=== PATIENT | female | born 1985 | race American Indian/Alaskan Native ===

== ENCOUNTER 2018-06-11 19:18 | Emergency (ER) | payer SELFPAY ==
[2018-06-11] MEDS ORDERED: CATAPRES PO ONE ×2 (20:04→20:28)
[2018-06-11 20:44] LABS: Basophils % (Auto) 0.6 % (0.0-1.8); Eosinophils # (Auto) 0.1 K/mm3 (0.0-0.4); Eosinophils % (Auto) 1.7 % (0.0-4.3); Hematocrit 31.8 % (30.3-42.9); Hemoglobin 10.6 gm/dl (10.1-14.3); Lymphocytes # (Auto) 1.8 K/mm3 (1.2-5.4); Mean Corpuscular HGB Conc 33 % (30-34); Mean Corpuscular Hemoglobin 30 pg (28-32); Mean Corpuscular Volume 90 fl (79-97); Monocytes # (Auto) 0.8 K/mm3 (0.0-0.8); Monocytes % (Auto) 10.5 % (0.0-7.3); Platelet Count 318 K/mm3 (140-440); Red Blood Count 3.55 M/mm3 (3.65-5.03); Red Cell Distribution Width 14.4 % (13.2-15.2)
[2018-06-11] MEDS ORDERED: TORADOL IM ONE (21:11)
[2018-06-11 21:13] LABS: Calcium 8.3 mg/dL (8.4-10.2)
[2018-06-11 21:27] LABS: Bilirubin,Urine NEG (Negative); Blood,Urine LG (Negative); Color,Urine Red (Yellow); Mucus,Urine FEW /HPF; Urobilinogen,Urine < 2.0 mg/dL (<2.0)
[2018-06-11 21:28] LABS: Protein,Urine >500 mg/dL (Negative)
[2018-06-11 21:30] LABS: RBC,Urine > 182.0 /HPF (0.0-6.0)
--- NOTE | 2018-06-11 22:35 | Ultrasound Report ---
FINAL REPORT EXAM: US TRANSVAGINAL HISTORY: heavy vag bleeding TECHNIQUE: Transvaginal grayscale and color-flow imaging of the pelvis was performed. Comparison: Transabdominal pelvic ultrasound also performed today. FINDINGS: The uterus measures 8.5 centimeters x 3.6 centimeters x 4.5 centimeters and is normal in appearance. Endometrial thickness measures 9.3 millimeters. Nabothian cysts are demonstrated within the cervix. The cervix is otherwise unremarkable. The right ovary measures 3.1 centimeters x 1.7 centimeters x 2.2 centimeters and contains an approximately 1.2 centimeter dominant follicle. The left ovary measures 2.4 centimeters x 1.3 centimeters x 2 centimeters and is unremarkable in appearance. No free fluid is demonstrated in the pelvis. IMPRESSION: 1. Ultrasound pelvis within normal limits.
--- NOTE | 2018-06-11 22:37 | Ultrasound Report ---
FINAL REPORT EXAM: US PELVIC COMPLETE HISTORY: heavy vag bleeding TECHNIQUE: Transabdominal grayscale imaging of the pelvis was performed. Comparison: Transvaginal study also performed today FINDINGS: The urinary bladder is moderately distended and unremarkable in appearance. The uterus measures 8.5 centimeters x 3.6 centimeters x 4.5 centimeters and is unremarkable in appearance. The ovaries are not visualized on the transabdominal study. No free fluid is demonstrated in the pelvis. IMPRESSION: 1. Unremarkable appearance of the uterus. 2. The ovaries are not visualized on the transabdominal study. Please see report of transvaginal study also performed today.
--- NOTE | 2018-06-12 00:56 | Emergency Department Report ---
ED Female HPI - General Chief complaint: Vaginal Bleeding Stated complaint: VAGINAL BLEEDING Time Seen by Provider: 06/11/18 20:35 Source: patient Mode of arrival: Ambulatory Limitations: No Limitations - History of Present Illness Initial comments: 32-year-old female with a past medical history of obesity, hypertension, and diabetes and previous cholecystectomy presents to Hospital with complaints of persistent vaginal bleeding. Patient has had vaginal bleeding times one week which is one week earlier than her scheduled menstrual cycle. The last 2 days she has had heavy vaginal bleeding and requiring the use of tampons and pads use of 5-6 of each in 1 day. Cycle typically only last 4 days. She complains of intermittent epigastric sharp pain in tightness without nausea, vomiting, dysuria, fever, or diarrhea. She does complain of feeling fatigued. Patient presents significantly hypertensive and has been noncompliant with her lisinopril 10 mg 1 week. She is however taking amlodipine 5 mg once a day. She has a refill at the pharmacy but has not yet picked it up there as she denies chest pain, shortness of breath, headache, or history uterine fibroids. - Related Data Home Medications Medication Instructions Recorded Confirmed Last Taken Lisinopril mg PO DAILY 06/11/18 Unknown amLODIPine mg PO DAILY 06/11/18 Unknown Previous Rx's Medication Instructions Recorded Last Taken Type medroxyPROGESTERone ACETATE 10 mg PO QDAY #10 tablet 06/12/18 Unknown Rx [Provera] traMADol [Ultram 50 MG tab] 50 mg PO Q6HR PRN #15 tablet 06/12/18 Unknown Rx Allergies Allergy/AdvReac Type Severity Reaction Status Date / Time No Known Allergies Allergy Unverified 06/11/18 20:02 ED Review of Systems ROS: Stated complaint: VAGINAL BLEEDING Other details as noted in HPI Comment: All other systems reviewed and negative ED Past Medical Hx - Past Medical History Hx Hypertension: Yes Hx Diabetes: Yes Additional medical history: Morbid Obesity - Surgical History Hx Cholecystectomy: Yes - Social History Smoking Status: Never Smoker Substance Use Type: None - Medications Home Medications: Home Medications Medication Instructions Recorded Confirmed Last Taken Type Lisinopril mg PO DAILY 06/11/18 Unknown History amLODIPine mg PO DAILY 06/11/18 Unknown History medroxyPROGESTERone ACETATE 10 mg PO QDAY #10 tablet 06/12/18 Unknown Rx [Provera] traMADol [Ultram 50 MG tab] 50 mg PO Q6HR PRN #15 tablet 06/12/18 Unknown Rx ED Physical Exam - General Limitations: No Limitations - Other Other exam information: General: No limitations, patient is alert in no acute distress Head exam: Atraumatic, normocephalic Eyes exam: Normal appearance, pupils equal reactive to light, extraocular movements intact ENT: Moist mucous membrane, normal oropharynx Neck exam: Normal inspection, full range of motion, no meningismus nontender Respiratory exam: Clear to auscultation bilateral, no wheezes, rales, crackles Cardiovascular: Normal rate and rhythm, normal heart sounds Abdomen: Soft, nondistended, mild epigastric tenderness, with normal bowel sounds, no rebound, or guarding Extremity: Full range of motion normal inspection no deformity Back: Normal Inspection, full range of motion, no tenderness Neurologic: Alert, oriented x3, cranial nerves intact, no motor or sensory deficit Psychiatric: normal affect, normal mood Skin: Warm, dry, intact ED Course Vital Signs 06/11/18 06/11/18 06/11/18 19:56 20:09 20:56 Temperature 98.7 F Pulse Rate 92 H 92 H Respiratory 18 Rate Blood Pressure 237/122 237/122 225/101 Blood Pressure [Left] O2 Sat by Pulse 99 Oximetry 06/11/18 06/11/18 22:32 22:45 Temperature 98 F Pulse Rate 80 77 Respiratory 16 20 Rate Blood Pressure 225/101 Blood Pressure 180/80 [Left] O2 Sat by Pulse 98 Oximetry ED Medical Decision Making - Lab Data Result diagrams: 06/11/18 20:18 06/11/18 20:18 Lab Results 06/11/18 06/11/18 06/11/18 Range/Units 20:18 20:18 20:18 WBC 7.5 (4.5-11.0) K/mm3 RBC 3.55 L (3.65-5.03) M/mm3 Hgb 10.6 (10.1-14.3) gm/dl Hct 31.8 (30.3-42.9) % MCV 90 (79-97) fl MCH 30 (28-32) pg MCHC 33 (30-34) % RDW 14.4 (13.2-15.2) % Plt Count 318 (140-440) K/mm3 Lymph % (Auto) 24.0 (13.4-35.0) % Harnett % (Auto) 10.5 H (0.0-7.3) % Eos % (Auto) 1.7 (0.0-4.3) % Baso % (Auto) 0.6 (0.0-1.8) % Lymph # 1.8 (1.2-5.4) K/mm3 Harnett # 0.8 (0.0-0.8) K/mm3 Eos # 0.1 (0.0-0.4) K/mm3 Baso # 0.0 (0.0-0.1) K/mm3 Seg Neutrophils % 63.2 (40.0-70.0) % Seg Neutrophils # 4.7 (1.8-7.7) K/mm3 Sodium (137-145) mmol/L Potassium (3.6-5.0) mmol/L Chloride (98-107) mmol/L Carbon Dioxide (22-30) mmol/L Anion Gap mmol/L BUN (7-17) mg/dL Creatinine (0.7-1.2) mg/dL Estimated GFR ml/min BUN/Creatinine Ratio % Glucose (65-100) mg/dL Calcium (8.4-10.2) mg/dL HCG, Qual Negative (Negative) Urine Color (Yellow) Urine Turbidity (Clear) Urine pH (5.0-7.0) Ur Specific Barnhart (1.003-1.030) Urine Protein (Negative) mg/dL Urine Glucose (UA) (Negative) mg/dL Urine Ketones (Negative) mg/dL Urine Blood (Negative) Urine Nitrite (Negative) Urine Bilirubin (Negative) Urine Urobilinogen (<2.0) mg/dL Ur Leukocyte Esterase (Negative) Urine WBC (Auto) (0.0-6.0) /HPF Urine RBC (Auto) (0.0-6.0) /HPF Urine Mucus /HPF Blood Type O POSITIVE Antibody Screen Negative 06/11/18 06/11/18 Range/Units 20:18 21:15 WBC (4.5-11.0) K/mm3 RBC (3.65-5.03) M/mm3 Hgb (10.1-14.3) gm/dl Hct (30.3-42.9) % MCV (79-97) fl MCH (28-32) pg MCHC (30-34) % RDW (13.2-15.2) % Plt Count (140-440) K/mm3 Lymph % (Auto) (13.4-35.0) % Harnett % (Auto) (0.0-7.3) % Eos % (Auto) (0.0-4.3) % Baso % (Auto) (0.0-1.8) % Lymph # (1.2-5.4) K/mm3 Harnett # (0.0-0.8) K/mm3 Eos # (0.0-0.4) K/mm3 Baso # (0.0-0.1) K/mm3 Seg Neutrophils % (40.0-70.0) % Seg Neutrophils # (1.8-7.7) K/mm3 Sodium 140 (137-145) mmol/L Potassium 4.9 (3.6-5.0) mmol/L Chloride 108.1 H (98-107) mmol/L Carbon Dioxide 22 (22-30) mmol/L Anion Gap 15 mmol/L BUN 15 (7-17) mg/dL Creatinine 1.5 H (0.7-1.2) mg/dL Estimated GFR 49 ml/min BUN/Creatinine Ratio 10 % Glucose 152 H (65-100) mg/dL Calcium 8.3 L (8.4-10.2) mg/dL HCG, Qual (Negative) Urine Color Red (Yellow) Urine Turbidity Slightly-cloudy (Clear) Urine pH 7.0 (5.0-7.0) Ur Specific Barnhart 1.012 (1.003-1.030) Urine Protein >500 (Negative) mg/dL Urine Glucose (UA) 50 (Negative) mg/dL Urine Ketones Neg (Negative) mg/dL Urine Blood Lg (Negative) Urine Nitrite Neg (Negative) Urine Bilirubin Neg (Negative) Urine Urobilinogen < 2.0 (<2.0) mg/dL Ur Leukocyte Esterase Neg (Negative) Urine WBC (Auto) 34.0 H (0.0-6.0) /HPF Urine RBC (Auto) > 182.0 (0.0-6.0) /HPF Urine Mucus Few /HPF Blood Type Antibody Screen - Radiology Data Radiology results: report reviewed FINAL REPORT EXAM: US TRANSVAGINAL HISTORY: heavy vag bleeding TECHNIQUE: Transvaginal grayscale and color-flow imaging of the pelvis was performed. Comparison: Transabdominal pelvic ultrasound also performed today. FINDINGS: The uterus measures 8.5 centimeters x 3.6 centimeters x 4.5 centimeters and is normal in appearance. Endometrial thickness measures 9.3 millimeters. Nabothian cysts are demonstrated within the cervix. The cervix is otherwise unremarkable. The right ovary measures 3.1 centimeters x 1.7 centimeters x 2.2 centimeters and contains an approximately 1.2 centimeter dominant follicle. The left ovary measures 2.4 centimeters x 1.3 centimeters x 2 centimeters and is unremarkable in appearance. No free fluid is demonstrated in the pelvis. IMPRESSION: 1. Ultrasound pelvis within normal limits. FINAL REPORT EXAM: US PELVIC COMPLETE HISTORY: heavy vag bleeding TECHNIQUE: Transabdominal grayscale imaging of the pelvis was performed. Comparison: Transvaginal study also performed today FINDINGS: The urinary bladder is moderately distended and unremarkable in appearance. The uterus measures 8.5 centimeters x 3.6 centimeters x 4.5 centimeters and is unremarkable in appearance. The ovaries are not visualized on the transabdominal study. No free fluid is demonstrated in the pelvis. IMPRESSION: 1. Unremarkable appearance of the uterus. 2. The ovaries are not visualized on the transabdominal study. Please see report of transvaginal study also performed today. - Medical Decision Making Hypertension Asymptomatic secondary to medication noncompliance Improved with clonidine Mild renal insufficiency: Patient counseled on avoiding NSAIDs, aspirin, and importance of compliance with medication She has a refill on a pharmacy and will pick it up Vaginal bleeding Prolonged menses last menorrhagia Normal H&H, no tachycardia, no hypotension Multivitamins with iron advised Provera will be prescribed. Warned about risk of signs DVT ISSUE CLERK follow up Patient has not had UTI symptoms and increased WBC likely secondary to vaginal bleeding. - Differential Diagnosis , miscarriage, ectopic, menorrhagia, anemia Critical Care Time: No Critical care attestation.: If time is entered above; I have spent that time in minutes in the direct care of this critically ill patient, excluding procedure time. ED Disposition Clinical Impression: Menorrhagia, Uncontrolled hypertension, Noncompliance with medication regimen, Renal insufficiency Disposition: TO HOME OR SELFCARE Is pt being admited?: No Does the pt Need Aspirin: No Condition: Stable Instructions: Hypertension (ED), Menorrhagia (ED), Impaired Kidney Function (ED ) Additional Instructions: You need to see a ISSUE CLERK doctor for management of your vaginal bleeding. Provera has been prescribed and can increase her risk of a blood clot in your leg and chest. Take multivitamins with iron and to prevent anemia. Your kidney function is mildly abnormal. This can be due to uncontrolled blood pressure. It is very important for you to your blood pressure medicine as prescribed and try not to miss doses.. Avoid aspirin, Motrin, Aleve, and ibuprofen because this may worsen kidney function. Tylenol and Tramadol are ok. Tramadol may cause drowsiness (do not drive on this medicine). Follow-up with your primary care doctor and/or a kidney doctor for further management. Please return if symptoms worsen as indicated by your discharge instructions Prescriptions: medroxyPROGESTERone ACETATE [Provera] 10 mg PO QDAY #10 tablet traMADol [Ultram 50 MG tab] 50 mg PO Q6HR PRN #15 tablet PRN Reason: Pain Referrals: PRIMARY CAREMD [Primary Care Provider] - 3-5 Days WALESKA GUILLORY DO [Staff Physician] - 3-5 Days (Tower Control Operator/kidney doctor) ELISA ENGLISH MD [Staff Physician] - 3-5 Days (ISSUE CLERK doctor) Time of Disposition: 01:15
[2018-06-12 01:46] VITALS: BP 171/95
== END 2018-06-12 01:44 | disposition home or self-care (01) ==
LOC: ED 19:18
DX: N92.0 Excessive and frequent menstruation with regular cycle (principal); I10 Essential (primary) hypertension; N28.9 Disorder of kidney and ureter, unspecified; E11.9 Type 2 diabetes mellitus without complications; E66.01 Morbid (severe) obesity due to excess calories; Z68.43 Body mass index [BMI] 50.0-59.9, adult; Z90.49 Acquired absence of other specified parts of digestive tract
CPT/HCPCS: 36415; 76830; 76856; 80048; 81001; 84703; 85025; 86850; 86900; 86901; 96372; 99284; J1885